=== PATIENT | male | born 1950 | race Caucasian/White ===

== ENCOUNTER 2017-11-12 15:38 | Observation (INO) ==
[2017-11-12] MEDS ORDERED: Sod Chloride 0.9% Inj 1,000 ML IV.SIG ONE (16:20)
--- NOTE | 2017-11-12 17:00 | ED ---
HPI General Chief Complaint: Abdominal Pain Stated Complaint: Abd Pain,diarrhea Time Seen by Provider: 11/12/17 16:20 Source: patient Mode of arrival: ambulatory Limitations: no limitations History of Present Illness HPI narrative: Patient is a 67-year-old male presenting to the emergency department for evaluation of abdominal pain and diarrhea. Patient states it started 2 weeks ago, he reports going to the emergency department [place] 3 times and he still does not know what is wrong with him he states he was told to follow-up with his primary doctor and see a printing supervisor. Patient states he has had 3 loose, watery bowel movements today. He reports left lower quadrant and left upper quadrant abdominal pain. Food does not exacerbate or alleviate his symptoms. He denies any fever, chills, headache or shortness of breath, he denies any nausea or vomiting. He states he is lost 8 pounds in the last 2 weeks. He has not been to see his primary doctor yet and has an appointment tomorrow morning. Past medical history is significant for diabetes , hypertension, hyperlipidemia. Symptom onset was gradual, symptoms are moderate in nature. No known alleviating or exacerbating factors. Related Data Home Medications Medication Instructions Recorded Confirmed albuterol sulfate [Ventolin HFA] 2 puff INHALATION Q6H PRN 11/12/17 11/12/17 allopurinol 100 mg PO DAILY 11/12/17 11/12/17 atorvastatin 20 mg PO DAILY 11/12/17 11/12/17 carvedilol [Coreg] 3.125 mg PO BID 11/12/17 11/12/17 digoxin 0.125 mg PO DAILY 11/12/17 11/12/17 diltiazem HCl 180 mg PO DAILY 11/12/17 11/12/17 furosemide [Lasix] 40 mg PO DAILY 11/12/17 11/12/17 gabapentin 300 mg PO BID 11/12/17 11/12/17 insulin detemir U-100 [Levemir 25 unit SUBCUT QPM 11/12/17 11/12/17 U-100 Insulin] insulin detemir U-100 [Levemir 30 unit SUBCUT QAM 11/12/17 11/12/17 U-100 Insulin] meclizine 25 mg PO DAILY PRN 11/12/17 11/12/17 metformin 1,000 mg PO BID 11/12/17 11/12/17 ramipril 5 mg PO DAILY 11/12/17 11/12/17 Allergies Allergy/AdvReac Type Severity Reaction Status Date / Time homatropine Allergy Mild Nausea/Vomi Verified 11/12/17 15:49 [From Hycodan (with ting homatropin)] hydrocodone Allergy Mild Nausea/Vomi Verified 11/12/17 15:49 [From Hycodan (with ting homatropin)] Review of Systems ROS: all other systems reviewed are negative PMFSH History History Provided By: Patient Medical History Medical History Hyperlipidemia (Acute) Hypertension (Acute) Type 2 diabetes mellitus (Acute) Social History Social History Substance History: No History of Abuse Second Hand Smoke Exposure: No Smoking Status: Never smoker How Often Do You Have a Drink Containing Alcohol: Never Recent Travel in [facility] within the Last 8 Weeks: No Recent Out of Country Travel within the Last 8 Weeks: No Exam Narrative Exam Narrative: GENERAL: Well-developed, obese male. Presenting in no acute distress. SKIN: Focused skin assessment warm/dry. HEAD: Atraumatic. Normocephalic. EYES: Pupils equal and round. No scleral icterus. No injection or drainage. ENT: No nasal bleeding or discharge. Mucous membranes pink and moist. NECK: Trachea midline. No JVD. CARDIOVASCULAR: Regular rate and rhythm. No murmur appreciated. RESPIRATORY: No accessory muscle use. Clear to auscultation. Breath sounds equal bilaterally. GASTROINTESTINAL: Abdomen obese, tender to palpation left lower quadrant and left upper quadrant, nondistended. Hepatic and splenic margins not palpable. MUSCULOSKELETAL: No obvious deformities. No clubbing. No cyanosis. No edema. NEUROLOGICAL: Awake and alert. No obvious cranial nerve deficits. Motor grossly within normal limits. Normal speech. PSYCHIATRIC: Appropriate mood and affect; insight and judgment normal. Course Initial Documented Vital Signs Temperature 97.2 F L 11/12/17 15:42 Pulse Rate 77 11/12/17 15:42 Respiratory Rate 15 11/12/17 15:42 Blood Pressure 125/64 11/12/17 15:42 Pulse Oximetry 97 11/12/17 15:42 Last Documented Vital Signs Temperature 97.2 F L 11/12/17 15:42 Pulse Rate 67 11/12/17 19:10 Respiratory Rate 18 11/12/17 19:10 Blood Pressure 122/58 L 11/12/17 19:10 Pulse Oximetry 98 11/12/17 19:10 Medical Decision Making MAGY Attestation MAGY supervised visit: Yes Attestation: I was present with the advanced practitioner during the management of this patient. I discussed the case with the advanced practitioner and agree with the findings and plan as documented in their note except as noted below. 67yM presenting with LUQ/ LLQ abdominal pain and diarrhea x 2 weeks. Workup reveals leukocytosis, dehydration, minimally elevated K+ at 5.3. Will r/o colitis/ diverticulitis with CT abd/pelvis. MDM Narrative Medical decision making narrative: Patient is presenting for abdominal pain and diarrhea. Labs and imaging ordered and pending. Patient is otherwise well- appearing with stable vital signs. Will reassess. CBC with a leukocytosis of 13.7 with left shift. Potassium level 5.3, BUN and creatinine are elevated at 34/1.73, no prior to compare to. CT scan the abdomen pelvis shows enteritis. Patient was started on ciprofloxacin IV empirically. Stool is negative for CDT, ova and parasite, WBCs and enteric pathogens is pending. Patient is agreeable to stay, he was advised on findings , plan of care was discussed with my attending physician. Admit orders placed. Medical Screen Exam Complete: Yes Emergency Medical Condition: Yes Differential Diagnosis Differential Diagnosis: Diverticulitis versus infectious colitis versus metabolic abnormality versus other Lab Data Lab results reviewed: Yes I reviewed the patient's lab results. Result diagrams: 11/12/17 16:50 11/12/17 16:50 Lab Results 11/12/17 11/12/17 11/12/17 Range/Units 16:50 16:50 19:00 WBC 13.7 H (4.0-11.0) th/mm3 RBC 3.76 L (4.50-5.90) mil/mm3 Hgb 12.1 L (13.0-17.0) gm/dL Hct 38.1 L (39.0-51.0) % MCV 101.3 H (80.0-100.0) fL MCH 32.3 (27.0-34.0) pg MCHC 31.8 L (32.0-36.0) % RDW 14.4 (11.6-17.2) % Plt Count 219 (150-450) th/mm3 MPV 8.2 (7.0-11.0) fL Neut % (Auto) 75.5 H (16.0-70.0) % Lymph % (Auto) 15.3 (9.0-44.0) % [place] % (Auto) 7.0 (0.0-8.0) % Eos % (Auto) 1.7 (0.0-4.0) % Baso % (Auto) 0.5 (0.0-2.0) % Neut # (Auto) 10.4 H (1.8-7.7) th/mm3 Lymph # (Auto) 2.1 (1.0-4.8) th/mm3 [place] # (Auto) 1.0 H (0.0-0.9) th/mm3 Eos # (Auto) 0.2 (0.0-0.4) th/mm3 Baso # (Auto) 0.1 (0.0-0.2) th/mm3 WBC Differential . Differential Comment Auto diff final Sodium 141 (136-145) meq/L Potassium 5.3 H (3.5-5.1) meq/L Chloride 107 (98-107) meq/L Carbon Dioxide 24.7 (21.0-32.0) meq/L Anion Gap 9 (5-15) meq/L BUN 34 H (7-18) mg/dL Creatinine 1.73 H (0.60-1.30) mg/dL Estimated GFR 40 L (>89) mL/min Random Glucose 98 (74-106) mg/dL Calcium 8.9 (8.5-10.1) mg/dL Total Bilirubin 0.3 (0.2-1.0) mg/dL AST 23 (15-37) U/L ALT 22 (12-78) U/L Alkaline Phosphatase 97 (45-117) U/L Total Protein 7.6 (6.4-8.2) g/dL Albumin 2.8 L (3.4-5.0) g/dL Lipase 375 (73-393) U/L Urine Color Yellow (Yellw/Straw) Urine Clarity Cloudy H (Clear) Urine pH 5.0 (5.0-8.5) Ur Specific [place] 1.023 (1.002-1.035) Urine Protein 500 or greater (Neg-Trace) mg/dL Urine Glucose (UA) Negative (Negative) mg/dL Urine Ketones Negative (Negative) mg/dL Urine Occult Blood Negative (Negative) Urine Nitrate Negative (Negative) Urine Bilirubin Negative (Negative) Urine Urobilinogen Less than 2 (Less than 2) mg/dL Ur Leukocyte Esterase Negative (Negative) Urine RBC 1 (0-3) /hpf Urine WBC 4 (0-5) /hpf Ur Squamous Epith Cells 2 (0-5) /hpf Urine Bacteria Rare H (None) /hpf Hyaline Casts 52 (0-3) /lpf Micro UA Comment Culture not ind Ur Microscopic Review Not Reportable Urine Culture Comments Culture not ind Stl C.difficile Tox PCR (Negative) St C. diff Tox Epid 027 (Negative) 11/12/17 Range/Units 19:00 WBC (4.0-11.0) th/mm3 RBC (4.50-5.90) mil/mm3 Hgb (13.0-17.0) gm/dL Hct (39.0-51.0) % MCV (80.0-100.0) fL MCH (27.0-34.0) pg MCHC (32.0-36.0) % RDW (11.6-17.2) % Plt Count (150-450) th/mm3 MPV (7.0-11.0) fL Neut % (Auto) (16.0-70.0) % Lymph % (Auto) (9.0-44.0) % [place] % (Auto) (0.0-8.0) % Eos % (Auto) (0.0-4.0) % Baso % (Auto) (0.0-2.0) % Neut # (Auto) (1.8-7.7) th/mm3 Lymph # (Auto) (1.0-4.8) th/mm3 [place] # (Auto) (0.0-0.9) th/mm3 Eos # (Auto) (0.0-0.4) th/mm3 Baso # (Auto) (0.0-0.2) th/mm3 WBC Differential Differential Comment Sodium (136-145) meq/L Potassium (3.5-5.1) meq/L Chloride (98-107) meq/L Carbon Dioxide (21.0-32.0) meq/L Anion Gap (5-15) meq/L BUN (7-18) mg/dL Creatinine (0.60-1.30) mg/dL Estimated GFR (>89) mL/min Random Glucose (74-106) mg/dL Calcium (8.5-10.1) mg/dL Total Bilirubin (0.2-1.0) mg/dL AST (15-37) U/L ALT (12-78) U/L Alkaline Phosphatase (45-117) U/L Total Protein (6.4-8.2) g/dL Albumin (3.4-5.0) g/dL Lipase (73-393) U/L Urine Color (Yellw/Straw) Urine Clarity (Clear) Urine pH (5.0-8.5) Ur Specific [place] (1.002-1.035) Urine Protein (Neg-Trace) mg/dL Urine Glucose (UA) (Negative) mg/dL Urine Ketones (Negative) mg/dL Urine Occult Blood (Negative) Urine Nitrate (Negative) Urine Bilirubin (Negative) Urine Urobilinogen (Less than 2) mg/dL Ur Leukocyte Esterase (Negative) Urine RBC (0-3) /hpf Urine WBC (0-5) /hpf Ur Squamous Epith Cells (0-5) /hpf Urine Bacteria (None) /hpf Hyaline Casts (0-3) /lpf Micro UA Comment Ur Microscopic Review Urine Culture Comments Stl C.difficile Tox PCR Negative (Negative) St C. diff Tox Epid 027 Negative (Negative) Imaging Data Radiologist's impression: Abdomen/Pelvis CT 11/12/17 18:54 CONCLUSION: 1. Left pelvic kidney with mild prominence of the collecting system with no renal calculi or definite obstruction. 2. Wispy soft tissue densities in the central mesentery which are nonspecific could be related to mesenteritis. Discharge Plan Discharge Disposition Patient Disposition: 30 Still Patient Discharge Condition Condition: Stable Discharge Details Diagnosis: Acute hyperkalemia, Enteritis, JASON (acute kidney injury) Physicians Team ED Provider: Benjamin Patino ED Midlevel Provider: Keturah Isbell Primary Care Provider: UNKNOWN, Attending Provider: Paola Adhikari Discharge Interventions Interventions: Vital Signs Last Done: 09/30/18 19:10 Status ED Status: Admitted Observation Patient
[2017-11-12 17:02] LABS: Baso # (Auto) 0.1 th/mm3 (0.0-0.2); Baso % (Auto) 0.5 % (0.0-2.0); Eos # (Auto) 0.2 th/mm3 (0.0-0.4); Eos % (Auto) 1.7 % (0.0-4.0); Hematocrit 38.1 % (39.0-51.0); Hemoglobin 12.1 gm/dL (13.0-17.0); Lymph # (Auto) 2.1 th/mm3 (1.0-4.8); Lymph % (Auto) 15.3 % (9.0-44.0); Mean Corpuscular HGB Conc 31.8 % (32.0-36.0); Mean Corpuscular Hemoglobin 32.3 pg (27.0-34.0); Mean Corpuscular Volume 101.3 fL (80.0-100.0); Mean Platelet Volume 8.2 fL (7.0-11.0); Neut # (Auto) 10.4 th/mm3 (1.8-7.7); Neut % (Auto) 75.5 % (16.0-70.0); Platelet Count 219 th/mm3 (150-450); Red Blood Count 3.76 mil/mm3 (4.50-5.90); Red Cell Distribution Width 14.4 % (11.6-17.2); White Blood Count 13.7 th/mm3 (4.0-11.0)
[2017-11-12 17:23] LABS: Albumin 2.8 g/dL (3.4-5.0); Anion Gap 9 meq/L (5-15); Aspartate Aminotransferase 23 U/L (15-37); Blood Urea Nitrogen 34 mg/dL (7-18); Calcium 8.9 mg/dL (8.5-10.1); Carbon Dioxide 24.7 meq/L (21.0-32.0); Chloride 107 meq/L (98-107); Glomerular Filtration Rate 40 mL/min (>89); Glucose,Random 98 mg/dL (74-106); Lipase 375 U/L (73-393); Potassium 5.3 meq/L (3.5-5.1); Sodium 141 meq/L (136-145)
[2017-11-12 17:26] LABS: Alanine Aminotransferase 22 U/L (12-78); Alkaline Phosphatase 97 U/L (45-117); Total Protein 7.6 g/dL (6.4-8.2)
[2017-11-12] MEDS ORDERED: Sod Chloride 0.9% Inj 1,000 ML IV.SIG SCH (17:45)
[2017-11-12 19:14] LABS: Bacteria,Urine Rare /hpf; Bilirubin,Urine Negative (Negative); Clarity,Urine Cloudy (Clear); Color,Urine Yellow (Yellw/Straw); Glucose,Urine (UA) Negative (Negative); Hyaline Casts,Urine 52 /lpf (0-3); Leukocyte Esterase,Urine Negative (Negative); Nitrite,Urine Negative (Negative); Specific Gravity,Urine 1.023 (1.002-1.035); Squamous Epithelial Cell,Urine 2 /hpf (0-5)
--- NOTE | 2017-11-12 19:41 | CT ---
EXAM DATE: 11/12/2017 6:57 PM EDT AGE/SEX: 67 years / Male INDICATIONS: Left sided abdomen pain for two weeks. CLINICAL DATA: This is the patient's initial encounter. Patient reports that signs and symptoms have been present for 2 weeks and indicates a pain score of 4/10. MEDICAL/SURGICAL HISTORY: Hypertension. Diabetes. None. RADIATION DOSE: 24.57 CTDI (mGy) ; Patient body habitus COMPARISON: No prior exams available for comparison. TECHNIQUE: Multiple contiguous axial images were obtained through the abdomen. Images were obtained using multiple row detector helical technique. Using automated exposure control and adjustment of the mA and/or kV according to patient size, radiation dose was kept as low as reasonably achievable to o btain optimal diagnostic quality images. DICOM format image data is available electronically for rev iew and comparison. FINDINGS: Lower Lungs: The visualized lower lungs are clear. Liver: The liver has a homogeneous density without space-occupying lesion. There is no dilation of th e biliary tree. The gallbladder is unremarkable in appearance. Spleen: Homogeneous density without enlargement. Pancreas: Unremarkable without mass or calcification. Kidneys: Normal in size and shape. The left kidney is located in the left side of the pelvis. There is mild prominence of the left collecting system with no renal calculi or solid mass. There are multi ple apparent cysts. Adrenal Glands: Unremarkable. Aorta: The aorta and proximal iliac vessels are grossly unremarkable without aneurysmal dilation. Bowel/Mesentery: No oral contrast was given sensitivity of the exam. There is no free air or fluid. Wispy soft tissue densities are noted in the central mesentery. There is no mesenteric adenopathy. Abdominal Wall: Intact. Retroperitoneum: No evidence of adenopathy in the retrocrural, para-aortic, or deep pelvic regions. Bladder: Contours are smooth. Reproductive Organs: No abnormal masses or calcifications seen. Inguinal: The inguinal region is unremarkable without evidence of adenopathy. Bony Structures: Scoliosis and degenerative changes are present. CONCLUSION: 1. Left pelvic kidney with mild prominence of the collecting system with no renal calculi or definit e obstruction. 2. Wispy soft tissue densities in the central mesentery which are nonspecific could be related to me senteritis. Electronically signed by: Froilan Coppola MD 11/12/2017 7:39 PM EDT
[2017-11-12] MEDS ORDERED: Ciprofloxacin 400 MG/200 ML 400 MG/200 ML PIGGYBACK IV.SIG ONE (22:26)
[2017-11-12] MEDS ORDERED: Acetaminophen 325 MG Tablet PO PRN (22:43)
[2017-11-12] MEDS ORDERED: Bisacodyl 10 MG Supp RECTAL PRN (22:43)
[2017-11-12] MEDS ORDERED: Dextrose 50% in Water 50 ML Vial IV.PUSH PRN (22:43)
--- NOTE | 2017-11-12 22:44 | P.HPIM ---
History of Present Illness Primary Care Physician: UNKNOWN History of Present Illness: This is a 67-year-old male with a PMH of HTN, Hyperlipidemia and DM who presented to the ER w/ complaints of abdominal pain and diarrhea x2 wks. States he was seen 2 in [facility] where he lives, had X-ray and CT Abd/Pelvis which he states were normal and was told to follow up w/ a Inside Sales Person, however has been having ongoing complaints. No nausea or vomiting. Decreased PO intake due to symptoms. Abd pain is generalized, intermittent, cramping, moderate, non-radiating. No fever/chills. On arrival, BP 125/64, HR 77, O2 sat 97% on RA, Afebrile. Creatinine 1.73, no previous labs for comparison. WBC 13.7. UA negative for UTI. C. difficile negative. CT Abdomen/Pelvis soft tissue densities and central mesentery possibly mesenteritis. S/p Cipro/Flagyl in ER. - Diagnosis (1) Enteritis (2) JASON (acute kidney injury) (3) Afib (4) DM (diabetes mellitus) Review of Systems PAST FAMILY HISTORY: Reviewed. No h/o DM or CAD All other systems reviewed negative except as stated in HPI PMFSH - History History Provided By: Patient - Medical History Medical History: Medical History (Last Reviewed 11/12/17 @ 17:36 by Elvie Epstein) Hyperlipidemia Hypertension Type 2 diabetes mellitus - Tobacco History Second Hand Smoke Exposure: No Smoking Status: Never smoker - Alcohol History How Often Do You Have a Drink Containing Alcohol: Never - Substance Use History Substance History: No History of Abuse - Travel History Recent Travel in the [place] Within the Last 8 Weeks: No Recent Travel Out of the Country Within the Last 8 Weeks: No - Immunization History Tetanus Immunization: <5 Years Hx Influenza Vaccine This Season: No Medications and Allergies Active Medications: Active Medications Sodium Chloride (Ns Inj) 1,000 mls @ 0 mls/hr IV.SIG BOLUS CRIS Last Infusion: 11/12/17 21:15 Dose: Infused Metronidazole/Sodium Chloride (Flagyl 500 Mg Inj) 100 mls @ 100 mls/hr IV.SIG ONCE ONE Stop: 11/12/17 23:25 Ciprofloxacin/Dextrose (Cipro 400 Mg/200 Ml Inj) 400 mg in 200 mls @ 200 mls/ hr IV.SIG ONCE ONE Stop: 11/12/17 23:25 Sodium Chloride (Ns Flush) 2 ml IV.FLUSH PRN PRN PRN Reason: FLUSH AFTER USING IV ACCESS Allergies Allergy/AdvReac Type Severity Reaction Status Date / Time homatropine Allergy Mild Nausea/Vomi Verified 11/12/17 15:49 [From Hycodan (with ting homatropin)] hydrocodone Allergy Mild Nausea/Vomi Verified 11/12/17 15:49 [From Hycodan (with ting homatropin)] Home Medications Medication Instructions Recorded Confirmed Type albuterol sulfate [Ventolin HFA] 2 puff INHALATION Q6H PRN 11/12/17 11/12/17 History allopurinol 100 mg PO DAILY 11/12/17 11/12/17 History atorvastatin 20 mg PO DAILY 11/12/17 11/12/17 History carvedilol [Coreg] 3.125 mg PO BID 11/12/17 11/12/17 History digoxin 0.125 mg PO DAILY 11/12/17 11/12/17 History diltiazem HCl 180 mg PO DAILY 11/12/17 11/12/17 History furosemide [Lasix] 40 mg PO DAILY 11/12/17 11/12/17 History gabapentin 300 mg PO BID 11/12/17 11/12/17 History insulin detemir U-100 [Levemir 25 unit SUBCUT QPM 11/12/17 11/12/17 History U-100 Insulin] insulin detemir U-100 [Levemir 30 unit SUBCUT QAM 11/12/17 11/12/17 History U-100 Insulin] meclizine 25 mg PO DAILY PRN 11/12/17 11/12/17 History metformin 1,000 mg PO BID 11/12/17 11/12/17 History ramipril 5 mg PO DAILY 11/12/17 11/12/17 History Exam Vital signs: Vital Signs 11/12/17 15:42 11/12/17 16:23 11/12/17 19:10 Temperature 97.2 F L Pulse Rate 77 67 Respiratory Rate 15 18 Blood Pressure 125/64 122/58 L Pulse Oximetry 97 97 98 Intake & Output 11/12/17 11/12/17 11/13/17 06:59 18:59 06:59 Intake Total 1000 / 1000 1000 / 1000 Balance 1000 / 1000 1000 / 1000 Weight 122.47 kg Intake: IV 999 NS Inj 1,000 ML @ Wide Open IV. 999 SIG BOLUS CRIS Rx#:[id number] Narrative: PE: GENERAL: Pleasant middle-aged white male in no acute distress. SKIN: Focused skin assessment warm and dry. HEENT: PERRLA, EOMI. No scleral icterus or conjunctival pallor. No lid lag or facial droop. CARDIOVASCULAR: Regular rate and rhythm. No obvious murmurs to auscultation. No chest tenderness to palpation. RESPIRATORY: No obvious rhonchi or wheezing. Clear to auscultation. Breath sounds equal bilaterally. GASTROINTESTINAL: Abdomen obese but soft, mild generalized tenderness to palpation, nondistended. BS normal. MUSCULOSKELETAL: Extremities without clubbing, cyanosis, or edema. No obvious deformities. NEUROLOGICAL: Awake, alert and oriented x4. No focal neurologic deficits. Moving both upper and lower extremities spontaneously. PSYCHIATRIC: Appropriate mood and affect. Insight and judgment normal. Results - Labs CBC & Chem 7: 11/12/17 16:50 11/12/17 16:50 Labs: Short CBC 11/12/17 Range/Units 16:50 WBC 13.7 H (4.0-11.0) th/mm3 Hgb 12.1 L (13.0-17.0) gm/dL Hct 38.1 L (39.0-51.0) % Plt Count 219 (150-450) th/mm3 BMP 11/12/17 16:50 Sodium 141 Potassium 5.3 H Chloride 107 Carbon Dioxide 24.7 BUN 34 H Creatinine 1.73 H Calcium 8.9 Liver Function 11/12/17 Range/Units 16:50 Total Bilirubin 0.3 (0.2-1.0) mg/dL AST 23 (15-37) U/L ALT 22 (12-78) U/L Alkaline Phosphatase 97 (45-117) U/L Albumin 2.8 L (3.4-5.0) g/dL Urine 11/12/17 Range/Units 19:00 Urine Color Yellow (Yellw/Straw) Urine Clarity Cloudy H (Clear) Urine pH 5.0 (5.0-8.5) Ur Specific [place] 1.023 (1.002-1.035) Urine Protein 500 or greater (Neg-Trace) mg/dL Urine Glucose (UA) Negative (Negative) mg/dL - Imaging Impressions Abdomen/Pelvis CT 11/12/17 18:54 CONCLUSION: 1. Left pelvic kidney with mild prominence of the collecting system with no renal calculi or definite obstruction. 2. Wispy soft tissue densities in the central mesentery which are nonspecific could be related to mesenteritis. Caprini VTE Risk Assessment Caprini VTE Risk Assessment: No/Low Risk (score <= 1) Caprini Risk Assessment Model: Point Value = 1 Point Value = 2 Point Value = 3 Point Value = 5 Age 41-60 Minor surgery BMI > 25 kg/m2 Swollen legs Varicose veins or History of unexplained or recurrent spontaneous Oral contraceptives or hormone replacement Sepsis (< 1 month) Serious lung disease, including pneumonia (< 1 month) Abnormal pulmonary function Acute myocardial infarction Congestive heart failure (< 1 month) History of inflammatory bowel disease Medical patient at bed rest Age 61-74 Arthroscopic surgery Major open surgery (> 45 min) Laparoscopic surgery (> 45 min) Malignancy Confined to bed (> 72 hours) Immobilizing plaster cast Central venous access Age >= 75 History of VTE Family history of VTE Factor V Leiden Prothrombin [id number] Lupus anticoagulant Anticardiolipin antibodies Elevated serum homocysteine Heparin-induced thrombocytopenia Other congenital or acquired thrombophilia Stroke (< 1 month) Elective arthroplasty Hip, pelvis, or leg fracture Acute spinal cord injury (< 1 month) Prophylaxis Regimen: Total Risk Factor Score Risk Level Prophylaxis Regimen 0-1 Low Early ambulation 2 Moderate Order ONE of the following: *Sequential Compression Device (SCD) *Heparin 5000 units SQ BID 3-4 Higher Order ONE of the following medications: *Heparin 5000 units SQ TID *Enoxaparin/Lovenox 40 mg SQ daily (WT < 150 kg, CrCl > 30 mL/min) *Enoxaparin/Lovenox 30 mg SQ daily (WT < 150 kg, CrCl > 10-29 mL/min) *Enoxaparin/Lovenox 30 mg SQ BID (WT < 150 kg, CrCl > 30 mL/min) AND/OR *Sequential Compression Device (SCD) 5 or more Highest Order ONE of the following medications: *Heparin 5000 units SQ TID (Preferred with Epidurals) *Enoxaparin/Lovenox 40 mg SQ daily (WT < 150 kg, CrCl > 30 mL/min) *Enoxaparin/Lovenox 30 mg SQ daily (WT < 150 kg, CrCl > 10-29 mL/min) *Enoxaparin/Lovenox 30 mg SQ BID (WT < 150 kg, CrCl > 30 mL/min) AND *Sequential Compression Device (SCD) Assessment and Plan - Assessment (1) Enteritis Code(s): K52.9 - Status: Acute (2) JASON (acute kidney injury) Code(s): N17.9 - Status: Acute (3) Afib Code(s): I48.91 - Status: Acute (4) DM (diabetes mellitus) Code(s): E11.9 - Status: Acute - Plan A/P: 1. Mesenteritis: c/o diarrhea x2 wks, C diff negative, CT Abd/Pelvis w/ likely mesenteritis, images reviewed, s/p Cipro/Flagyl, will continue w/ IV Abx , IVF for hydration, Lomotil prn if needed, analgesics/antiemetics. Outpatient GI follow up if needed. 2. JASON: Creatinine 1.73, no previous labs for comparison, presumably new due to dehydration, IVF for hydration, repeat labs in am, monitor I/O, U/a negative for UTI. 3. Afib: Chronic, resume home medications. 4. DM: Sliding scale w/ Accu-Cheks 5. DVT Prophylaxis: SCD/Teds 6. Social work for d/c planning as needed. 7. Case discussed w/ ER physician at length, labs/records/imaging reviewed by me.
[2017-11-13 06:00] LABS: Baso % (Auto) 0.3 % (0.0-2.0); Eos # (Auto) 0.3 th/mm3 (0.0-0.4); Eos % (Auto) 2.3 % (0.0-4.0); Hematocrit 36.9 % (39.0-51.0); Hemoglobin 11.9 gm/dL (13.0-17.0); Lymph # (Auto) 1.9 th/mm3 (1.0-4.8); Lymph % (Auto) 15.7 % (9.0-44.0); Mean Corpuscular HGB Conc 32.1 % (32.0-36.0); Mean Corpuscular Hemoglobin 32.3 pg (27.0-34.0); Mean Corpuscular Volume 100.6 fL (80.0-100.0); Mean Platelet Volume 8.4 fL (7.0-11.0); Mono % (Auto) 8.2 % (0.0-8.0); Neut % (Auto) 73.5 % (16.0-70.0); Platelet Count 201 th/mm3 (150-450); Red Blood Count 3.67 mil/mm3 (4.50-5.90); Red Cell Distribution Width 14.3 % (11.6-17.2); White Blood Count 12.2 th/mm3 (4.0-11.0)
[2017-11-13 06:21] LABS: Alanine Aminotransferase 20 U/L (12-78); Albumin 2.7 g/dL (3.4-5.0); Alkaline Phosphatase 92 U/L (45-117); Anion Gap 8 meq/L (5-15); Aspartate Aminotransferase 34 U/L (15-37); Blood Urea Nitrogen 27 mg/dL (7-18); Calcium 8.7 mg/dL (8.5-10.1); Carbon Dioxide 23.8 meq/L (21.0-32.0); Chloride 108 meq/L (98-107); Glomerular Filtration Rate 68 mL/min (>89); Sodium 140 meq/L (136-145); Total Protein 7.5 g/dL (6.4-8.2)
[2017-11-13 06:22] LABS: Potassium 4.6 meq/L (3.5-5.1)
[2017-11-13 06:24] LABS: Glucose,Random 37 mg/dL (74-106)
[2017-11-13] MEDS ORDERED: Dextrose 5%/NaCl 0.9% Inj 1,000 ML IV.CONT SCH (08:30)
[2017-11-13] MEDS ORDERED: Dextrose 5%/Lactated Ringer's 1,000 ML IV.CONT SCH (08:30)
[2017-11-13] MEDS: Insulin NovoLOG Aspart Correctional Sugar Inj SQ SCH ×4 (08:58→21:48)
[2017-11-13] MEDS: Digoxin 125 MCG Tablet PO SCH (09:00)
[2017-11-13] MEDS: dilTIAZem CD 180 MG Capsule PO SCH (09:00)
[2017-11-13] MEDS: Senna/Docusate Sodium 8.6/50 MG Tablet PO SCH ×2 (09:01→20:37)
[2017-11-13] MEDS: Ciprofloxacin 400 MG/200 ML 400 MG/200 ML PIGGYBACK IV.SIG SCH ×2 (09:01→20:27)
--- NOTE | 2017-11-13 09:45 | P.PN ---
Subjective Interval history: Follow-up for diarrhea, acute kidney injury. Patient is currently doing well. He feels that his diarrhea is improving a little bit. No fever or chills. Physical Exam Vital signs: Vital Signs 11/12/17 15:42 11/12/17 16:23 11/12/17 19:10 Temperature 97.2 F L Pulse Rate 77 67 Respiratory Rate 15 18 Blood Pressure 125/64 122/58 L Pulse Oximetry 97 97 98 11/12/17 23:30 11/13/17 04:00 11/13/17 08:00 Temperature 97.7 F 97.8 F 97.8 F Pulse Rate 73 67 68 Respiratory Rate 20 20 18 Blood Pressure 140/84 131/72 123/57 L Pulse Oximetry 94 L 96 96 Intake & Output 11/12/17 11/13/17 11/13/17 18:59 06:59 18:59 Intake Total 1000 / 1000 1540 / 1540 100 / 100 Balance 1000 / 1000 1540 / 1540 100 / 100 Weight 122.47 kg 122.47 kg Intake: IV 1000 / 1000 1300 / 1300 100 / 100 Cipro 400 MG/200 ML Inj 400 mg 200 / 200 In 200 ml @ 200 mls/hr IV.SIG ONCE ONE Rx#:[id number] NS Inj 1,000 ML @ Wide Open IV. 1000 / 1000 1000 / 1000 SIG BOLUS CRIS Rx#:[id number] Flagyl 500 MG Inj 100 ML @ 100 100 / 100 100 / 100 mls/hr IV.SIG Q8H CRIS Rx#: [id number] Oral 240 / 240 Other: # Voids 1 Date of Last Bowel Movement 11/12/17 # Bowel Movements 1 Weight On Admission 122.47 kg Narrative: GENERAL: Alert, NAD. Morbidly obese. SKIN: Warm and dry. HEAD: Normocephalic. EYES: No scleral icterus. No injection or drainage. NECK: Supple, trachea midline. No JVD or lymphadenopathy. CARDIOVASCULAR: Regular rate and rhythm without murmurs, gallops, or rubs. RESPIRATORY: Breath sounds equal bilaterally. No accessory muscle use. GASTROINTESTINAL: Abdomen soft, non-tender, nondistended. MUSCULOSKELETAL: No cyanosis, or edema. BACK: Nontender without obvious deformity. No CVA tenderness. Results - Labs CBC & Chem 7: 11/13/17 05:32 11/13/17 05:32 Laboratory Results - last 24 hr 11/12/17 11/12/17 11/12/17 16:50 16:50 19:00 WBC 13.7 H RBC 3.76 L Hgb 12.1 L Hct 38.1 L MCV 101.3 H MCH 32.3 MCHC 31.8 L RDW 14.4 Plt Count 219 MPV 8.2 Neut % (Auto) 75.5 H Lymph % (Auto) 15.3 [place] % (Auto) 7.0 Eos % (Auto) 1.7 Baso % (Auto) 0.5 Neut # (Auto) 10.4 H Lymph # (Auto) 2.1 [place] # (Auto) 1.0 H Eos # (Auto) 0.2 Baso # (Auto) 0.1 WBC Differential . Differential Comment Auto diff final Sodium 141 Potassium 5.3 H Chloride 107 Carbon Dioxide 24.7 Anion Gap 9 BUN 34 H Creatinine 1.73 H Estimated GFR 40 L POC Glucose Random Glucose 98 Calcium 8.9 Total Bilirubin 0.3 AST 23 ALT 22 Alkaline Phosphatase 97 Total Protein 7.6 Albumin 2.8 L Lipase 375 Urine Color Yellow Urine Clarity Cloudy H Urine pH 5.0 Ur Specific [place] 1.023 Urine Protein 500 or greater Urine Glucose (UA) Negative Urine Ketones Negative Urine Occult Blood Negative Urine Nitrate Negative Urine Bilirubin Negative Urine Urobilinogen Less than 2 Ur Leukocyte Esterase Negative Urine RBC 1 Urine WBC 4 Ur Squamous Epith Cells 2 Urine Bacteria Rare H Hyaline Casts 52 Micro UA Comment Culture not ind Ur Microscopic Review Not Reportable Urine Culture Comments Culture not ind Stl C.difficile Tox PCR St C. diff Tox Epid 027 11/12/17 11/13/17 11/13/17 19:00 05:32 05:32 WBC 12.2 H RBC 3.67 L Hgb 11.9 L Hct 36.9 L MCV 100.6 H MCH 32.3 MCHC 32.1 RDW 14.3 Plt Count 201 MPV 8.4 Neut % (Auto) 73.5 H Lymph % (Auto) 15.7 [place] % (Auto) 8.2 H Eos % (Auto) 2.3 Baso % (Auto) 0.3 Neut # (Auto) 9.0 H Lymph # (Auto) 1.9 [place] # (Auto) 1.0 H Eos # (Auto) 0.3 Baso # (Auto) 0.0 WBC Differential . Differential Comment Auto diff final Sodium 140 Potassium 4.6 Chloride 108 H Carbon Dioxide 23.8 Anion Gap 8 BUN 27 H Creatinine 1.09 Estimated GFR 68 L POC Glucose Random Glucose 37 L* Calcium 8.7 Total Bilirubin 0.4 AST 34 ALT 20 Alkaline Phosphatase 92 Total Protein 7.5 Albumin 2.7 L Lipase Urine Color Urine Clarity Urine pH Ur Specific [place] Urine Protein Urine Glucose (UA) Urine Ketones Urine Occult Blood Urine Nitrate Urine Bilirubin Urine Urobilinogen Ur Leukocyte Esterase Urine RBC Urine WBC Ur Squamous Epith Cells Urine Bacteria Hyaline Casts Micro UA Comment Ur Microscopic Review Urine Culture Comments Stl C.difficile Tox PCR Negative St C. diff Tox Epid 027 Negative 11/13/17 11/13/17 11/13/17 06:28 06:45 08:07 WBC RBC Hgb Hct MCV MCH MCHC RDW Plt Count MPV Neut % (Auto) Lymph % (Auto) [place] % (Auto) Eos % (Auto) Baso % (Auto) Neut # (Auto) Lymph # (Auto) [place] # (Auto) Eos # (Auto) Baso # (Auto) WBC Differential Differential Comment Sodium Potassium Chloride Carbon Dioxide Anion Gap BUN Creatinine Estimated GFR POC Glucose 44 L* 123 H 71 Random Glucose Calcium Total Bilirubin AST ALT Alkaline Phosphatase Total Protein Albumin Lipase Urine Color Urine Clarity Urine pH Ur Specific [place] Urine Protein Urine Glucose (UA) Urine Ketones Urine Occult Blood Urine Nitrate Urine Bilirubin Urine Urobilinogen Ur Leukocyte Esterase Urine RBC Urine WBC Ur Squamous Epith Cells Urine Bacteria Hyaline Casts Micro UA Comment Ur Microscopic Review Urine Culture Comments Stl C.difficile Tox PCR St C. diff Tox Epid 027 - Imaging Impressions Abdomen/Pelvis CT 11/12/17 18:54 CONCLUSION: 1. Left pelvic kidney with mild prominence of the collecting system with no renal calculi or definite obstruction. 2. Wispy soft tissue densities in the central mesentery which are nonspecific could be related to mesenteritis. - Procedures None Assessment and Plan - Assessment (1) Enteritis Code(s): K52.9 - Status: Acute (2) JASON (acute kidney injury) Code(s): N17.9 - Status: Acute (3) Afib Code(s): I48.91 - Status: Acute (4) DM (diabetes mellitus) Code(s): E11.9 - Status: Acute - Plan This is a 67-year-old male with a PMH of HTN, Hyperlipidemia and DM who presented to the ER w/ complaints of abdominal pain and diarrhea x2 wks. On arrival, BP 125/64, HR 77, O2 sat 97% on RA, Afebrile. Creatinine 1.73, no previous labs for comparison. WBC 13.7. UA negative for UTI. C. difficile negative. CT Abdomen/Pelvis soft tissue densities and central mesentery possibly mesenteritis. S/p Cipro/Flagyl in ER. Enteritis -Continue hydration as well as ciprofloxacin and Flagyl. -We will start patient on full liquid diet. -If diarrhea is not improved within 24 hours, will consult gastroenterology. Hypoglycemia Diabetes mellitus -Patient reports about 10 pound weight loss in the last 1 month. -He continues to take Levemir 30 units in the morning and 25 units at night. -I suspect due to acute kidney injury and long-acting insulin he continues to have hypoglycemic episodes. -We will hold off using any scheduled insulin regimen for now. -Start D5 normal saline at 84 cc/h. -Will likely use low dose Levemir upon discharge. Acute kidney injury -Creatinine 1.73 on admission. Currently 1.09. -We will continue to hydrate patient. Atrial fibrillation Hypertension -At home patient is on diltiazem 180 mg daily, carvedilol 3.125 mg twice daily, Lasix 40 mg daily, ramipril 5 mg daily as well as digoxin 0.125 mg p.o. daily -His [id number] score is at least 3. I encouraged patient to discuss with his precision millwright regarding anti-coagulation. Full code. Ambulation.
[2017-11-13] MEDS: Insulin Detemir Inj 1,000 UNIT/10 ML Vial SQ SCH (21:47)
[2017-11-14] MEDS: Ciprofloxacin 400 MG/200 ML 400 MG/200 ML PIGGYBACK IV.SIG SCH (08:49)
[2017-11-14] MEDS: Insulin NovoLOG Aspart Correctional Sugar Inj SQ SCH ×4 (08:49→20:31)
[2017-11-14] MEDS: dilTIAZem CD 180 MG Capsule PO SCH (08:49)
[2017-11-14] MEDS: Digoxin 125 MCG Tablet PO SCH (08:49)
[2017-11-14] MEDS: Senna/Docusate Sodium 8.6/50 MG Tablet PO SCH ×2 (08:50→20:32)
[2017-11-14 11:18] LABS: Baso # (Auto) 0.1 th/mm3 (0.0-0.2); Baso % (Auto) 0.7 % (0.0-2.0); Eos # (Auto) 0.2 th/mm3 (0.0-0.4); Eos % (Auto) 2.1 % (0.0-4.0); Hematocrit 37.3 % (39.0-51.0); Hemoglobin 12.4 gm/dL (13.0-17.0); Lymph # (Auto) 1.4 th/mm3 (1.0-4.8); Lymph % (Auto) 15.4 % (9.0-44.0); Mean Corpuscular HGB Conc 33.2 % (32.0-36.0); Mean Corpuscular Hemoglobin 33.1 pg (27.0-34.0); Mean Corpuscular Volume 99.8 fL (80.0-100.0); Mean Platelet Volume 8.9 fL (7.0-11.0); Mono # (Auto) 0.6 th/mm3 (0.0-0.9); Mono % (Auto) 6.9 % (0.0-8.0); Neut # (Auto) 6.7 th/mm3 (1.8-7.7); Neut % (Auto) 74.9 % (16.0-70.0); Platelet Count 190 th/mm3 (150-450); Red Blood Count 3.74 mil/mm3 (4.50-5.90); Red Cell Distribution Width 14.4 % (11.6-17.2); White Blood Count 8.9 th/mm3 (4.0-11.0)
--- NOTE | 2017-11-14 13:53 | P.PN ---
Subjective Interval history: Follow-up for diarrhea, acute kidney injury. Patient is currently doing well. He continues to have some diarrhea but much improved. No fever or chills. Tolerating diet well. Physical Exam Vital signs: Vital Signs 11/13/17 16:00 11/13/17 20:00 11/13/17 23:48 Temperature 97.6 F 97.3 F L 98.2 F Pulse Rate 62 87 84 Respiratory Rate 18 16 16 Blood Pressure 152/83 H 130/73 139/68 Pulse Oximetry 94 L 100 94 L 11/14/17 04:30 11/14/17 12:00 Temperature 97.7 F 97.8 F Pulse Rate 73 69 Respiratory Rate 16 18 Blood Pressure 137/68 125/76 Pulse Oximetry 94 L 93 L Intake & Output 11/13/17 11/14/17 11/14/17 18:59 06:59 18:59 Intake Total 600 / 600 540 / 540 300 / 300 Balance 600 / 600 540 / 540 300 / 300 Intake: IV 600 / 600 300 / 300 300 / 300 D5W/Normal Saline Inj 1,000 ML 200 / 200 @ 84 mls/hr IV.CONT .[id number] CRIS Rx#:[id number] Cipro 400 MG/200 ML Inj 400 mg 200 / 200 200 / 200 200 / 200 In 200 ml @ 200 mls/hr IV.SIG Q12H CRIS Rx#:[id number] Flagyl 500 MG Inj 100 ML @ 100 200 / 200 100 / 100 100 / 100 mls/hr IV.SIG Q8H CRIS Rx#: [id number] Oral 240 / 240 Other: # Voids 3 Date of Last Bowel Movement 11/12/17 11/13/17 11/13/17 # Bowel Movements 2 Narrative: GENERAL: Alert, NAD. Morbidly obese. SKIN: Warm and dry. HEAD: Normocephalic. EYES: No scleral icterus. No injection or drainage. NECK: Supple, trachea midline. No JVD or lymphadenopathy. CARDIOVASCULAR: Regular rate and rhythm without murmurs, gallops, or rubs. RESPIRATORY: Breath sounds equal bilaterally. No accessory muscle use. GASTROINTESTINAL: Abdomen soft, non-tender, nondistended. MUSCULOSKELETAL: No cyanosis, or edema. BACK: Nontender without obvious deformity. No CVA tenderness. Results - Labs CBC & Chem 7: 11/14/17 10:33 11/13/17 05:32 Laboratory Results - last 24 hr 11/13/17 11/13/17 11/14/17 17:24 21:21 08:41 WBC RBC Hgb Hct MCV MCH MCHC RDW Plt Count MPV Neut % (Auto) Lymph % (Auto) [place] % (Auto) Eos % (Auto) Baso % (Auto) Neut # (Auto) Lymph # (Auto) [place] # (Auto) Eos # (Auto) Baso # (Auto) WBC Differential Differential Comment POC Glucose 227 H 150 H 138 H 11/14/17 11/14/17 10:33 11:45 WBC 8.9 RBC 3.74 L Hgb 12.4 L Hct 37.3 L MCV 99.8 MCH 33.1 MCHC 33.2 RDW 14.4 Plt Count 190 MPV 8.9 Neut % (Auto) 74.9 H Lymph % (Auto) 15.4 [place] % (Auto) 6.9 Eos % (Auto) 2.1 Baso % (Auto) 0.7 Neut # (Auto) 6.7 Lymph # (Auto) 1.4 [place] # (Auto) 0.6 Eos # (Auto) 0.2 Baso # (Auto) 0.1 WBC Differential . Differential Comment Auto diff final POC Glucose 312 H Microbiology 11/12/17 19:00 Stool Enteric Pathogens (PCR) - Final No enteric pathogens detected by PCR (No Salmonella sp., Shigella sp., Campylobacter sp., Yersinia enterocolitica, Vibrio sp., Norovirus, or EHEC (Shiga Toxin 1 or Shiga Toxin 2) detected. 11/12/17 19:00 Stool Cryptosporidium Antigen - Final Negative - No Cryptosporicium antigen detected In selected cases of patients with a history of immunosuppression or foreign travel, a full ova and parasites examination may be desired. Contact the microbiology lab if full workup is indicated and subit another specimen for testing. 11/12/17 19:00 Stool Giardia Antigen (FELICITAS) - Final Negative - No Giardia Antigen detected In selected cases of patients with a history of immunosuppression or foreign travel, a full ova and parasites examination may be desired. Contact the microbiology lab if full workup is indicated and subit another specimen for testing. 11/12/17 19:00 Stool Stool for WBCs - Final - Procedures None Assessment and Plan - Assessment (1) Enteritis Code(s): K52.9 - Noninfective gastroenteritis and colitis, unspecified Status : Acute (2) JASON (acute kidney injury) Code(s): N17.9 - Acute kidney failure, unspecified Status: Acute (3) Afib Code(s): I48.91 - Unspecified atrial fibrillation Status: Acute (4) DM (diabetes mellitus) Code(s): E11.9 - Type 2 diabetes mellitus without complications Status: Acute - Plan This is a 67-year-old male with a PMH of HTN, Hyperlipidemia and DM who presented to the ER w/ complaints of abdominal pain and diarrhea x2 wks. On arrival, BP 125/64, HR 77, O2 sat 97% on RA, Afebrile. Creatinine 1.73, no previous labs for comparison. WBC 13.7. UA negative for UTI. C. difficile negative. CT Abdomen/Pelvis soft tissue densities and central mesentery possibly mesenteritis. S/p Cipro/Flagyl in ER. Enteritis -Will switch to PO ciprofloxacin and Flagyl. -Advance diet to diabetic diet. Hypoglycemia Diabetes mellitus -Patient reports about 10 pound weight loss in the last 1 month. -He continues to take Levemir 30 units in the morning and 25 units at night. -I suspect due to acute kidney injury and long-acting insulin he continues to have hypoglycemic episodes. -started Levemir 5 units QHS. Sliding scale insulin. Acute kidney injury -Creatinine 1.73 on admission. Currently 1.09. -Continue PO hydration. Atrial fibrillation Hypertension -At home patient is on diltiazem 180 mg daily, carvedilol 3.125 mg twice daily, Lasix 40 mg daily, ramipril 5 mg daily as well as digoxin 0.125 mg p.o. daily -His [id number] score is at least 3. I encouraged patient to discuss with his parachute repairer regarding anti-coagulation. Full code. Ambulation. Possible discharge on 11/15/2017.
[2017-11-14] MEDS: Ciprofloxacin 500 MG Tablet PO SCH (20:29)
[2017-11-14] MEDS: Insulin Detemir Inj 1,000 UNIT/10 ML Vial SQ SCH (20:31)
[2017-11-15] MEDS: metroNIDAZOLE 500 MG Tablet PO SCH ×2 (00:11→06:09)
[2017-11-15 07:58] VITALS: BP 132/72; PULSE 88; RESP 18; TEMP 97.6
[2017-11-15 07:59] VITALS: O2SAT 96
[2017-11-15] MEDS: Digoxin 125 MCG Tablet PO SCH (08:35)
[2017-11-15] MEDS: Insulin NovoLOG Aspart Correctional Sugar Inj SQ SCH (08:36)
[2017-11-15] MEDS: dilTIAZem CD 180 MG Capsule PO SCH (08:36)
[2017-11-15] MEDS: Ciprofloxacin 500 MG Tablet PO SCH (08:36)
[2017-11-15] MEDS: Senna/Docusate Sodium 8.6/50 MG Tablet PO SCH (08:37)
--- NOTE | 2017-11-15 14:02 | P.DS ---
Date of admission: 11/12/17 22:27 Primary care physician: UNKNOWN Brief History from admission: This is a 67-year-old male with a PMH of HTN, Hyperlipidemia and DM who presented to the ER w/ complaints of abdominal pain and diarrhea x2 wks. States he was seen 2 in [facility] where he lives, had X-ray and CT Abd/Pelvis which he states were normal and was told to follow up w/ a Manager Medicare, however has been having ongoing complaints. No nausea or vomiting. Decreased PO intake due to symptoms. Abd pain is generalized, intermittent, cramping, moderate, non-radiating. No fever/chills. On arrival, BP 125/64, HR 77, O2 sat 97% on RA, Afebrile. Creatinine 1.73, no previous labs for comparison. WBC 13.7. UA negative for UTI. C. difficile negative. CT Abdomen/Pelvis soft tissue densities and central mesentery possibly mesenteritis. S/p Cipro/Flagyl in ER. Patient update on day of discharge: Patient is currently doing well. Having bowel movements but much improved. No fever, chills. Tolerating diet well. DS: Diagnosis - Discharge Diagnosis (1) Enteritis Status: Acute (2) JASON (acute kidney injury) Status: Acute (3) Afib Status: Acute (4) DM (diabetes mellitus) Status: Acute DS: Medications - Discharge Medications Prescriptions: ciprofloxacin HCl 500 mg PO Q12HR #14 tab insulin aspart U-100 [Novolog U-100 Insulin aspart] 0 unit SUBCUT ACHS 30 Days ml metformin 500 mg PO BID #60 tab metronidazole 500 mg PO Q8HR #21 tab DS: Summary Hospital Course: This is a 67-year-old male with a PMH of HTN, Hyperlipidemia and DM who presented to the ER w/ complaints of abdominal pain and diarrhea x2 wks. On arrival, BP 125/64, HR 77, O2 sat 97% on RA, Afebrile. Creatinine 1.73, no previous labs for comparison. WBC 13.7. UA negative for UTI. C. difficile negative. CT Abdomen/Pelvis soft tissue densities and central mesentery possibly mesenteritis. S/p Cipro/Flagyl in ER. Enteritis -Will switch to PO ciprofloxacin and Flagyl. We will continue for 7 days after discharge. -continue diabetic diet. Hypoglycemia Diabetes mellitus -Patient reports about 10 pound weight loss in the last 1 month. -He continues to take Levemir 30 units in the morning and 25 units at night. -I suspect due to acute kidney injury and long-acting insulin he continues to have hypoglycemic episodes. -Levemir 5 units QHS. Sliding scale insulin. We will continue Metformin and Levemir as well as Sliding scale insulin upon discharge. Acute kidney injury -Creatinine 1.73 on admission. Currently 1.09. -Continue PO hydration. Atrial fibrillation Hypertension -At home patient is on diltiazem 180 mg daily, carvedilol 3.125 mg twice daily, Lasix 40 mg daily, ramipril 5 mg daily as well as digoxin 0.125 mg p.o. daily -His [id number] score is at least 3. I encouraged patient to discuss with his biostatistics director regarding anti-coagulation. Full code. Ambulation. - Time Spent with Patient Total time spent providing and/or coordinating discharge services: Greater than 30 minutes - Quality: VTE Deep Vein Thrombosis/Pulmonary Embolism Present on Admission: No Exam Vital signs: Vital Signs 11/14/17 22:28 11/15/17 04:30 11/15/17 07:56 Temperature 97.6 F 98.0 F 97.6 F Pulse Rate 83 84 88 Respiratory Rate 20 16 18 Blood Pressure 138/72 128/81 132/72 Pulse Oximetry 98 95 96 Intake & Output 11/14/17 11/15/17 11/15/17 18:59 06:59 18:59 Intake Total 400 / 400 360 / 360 Balance 400 / 400 360 / 360 Intake: IV 400 / 400 Cipro 400 MG/200 ML Inj 400 mg 200 / 200 In 200 ml @ 200 mls/hr IV.SIG Q12H CRIS Rx#:[id number] Flagyl 500 MG Inj 100 ML @ 100 200 / 200 mls/hr IV.SIG Q8H CRIS Rx#: [id number] Oral 360 / 360 Other: # Voids 6 Date of Last Bowel Movement 11/13/17 11/14/17 11/15/17 # Bowel Movements 6 Results Procedures completed during hospitalization: None Labs on day of discharge: Labs from last 24 hours 11/15/17 11/14/17 11/14/17 08:25 20:21 17:48 POC Glucose 139 H 208 H 107 - Impressions ITS Impressions Abdomen/Pelvis CT 11/12/17 18:54 CONCLUSION: 1. Left pelvic kidney with mild prominence of the collecting system with no renal calculi or definite obstruction. 2. Wispy soft tissue densities in the central mesentery which are nonspecific could be related to mesenteritis. Discharge Plan - Discharge Disposition Patient Disposition: 01 Discharge Home - Discharge Condition Condition: Stable - Discharge Order Discharge Orders: Discharge Order (Routine); Ordered 11/15/17 Ordered By: Madhavi Lopez - Discharge Details Anticipated Discharge Date: 11/15/17 - Physicians Team Primary Care Provider: UNKNOWN, Attending Provider: Madhavi Lopez Other Providers: Ang,Ang
== END 2017-11-15 12:14 | disposition home or self-care (01) ==
LOC: NEPC 15:38 → NEDA 15:38 → NEPGCP 23:21
PROVIDERS: ADMIT Hospitalist; ATTEND Hospitalist
DX: E78.5 Hyperlipidemia, unspecified; E86.0 Dehydration; I48.2 Chronic atrial fibrillation; Z79.4 Long term (current) use of insulin; K52.9 Noninfective gastroenteritis and colitis, unspecified; E11.649 Type 2 diabetes mellitus with hypoglycemia without coma; E66.9 Obesity, unspecified; E87.5 Hyperkalemia; Z68.41 Body mass index [BMI] 40.0-44.9, adult; I10 Essential (primary) hypertension; N17.9 Acute kidney failure, unspecified